=== PATIENT | female | born 1955 | race Two or more races ===

== ENCOUNTER → 2016-12-22 | Day surgery (SDC) | payer BC ==
[~2016-12-22] VITALS: Ht 151.1 cm; Wt 59.9 kg
[~2016-12-22] MED LIST: ESTRADIOL PO; FISH OIL 1,2001 EAC2 PO; OSCAL + D500 MG PO; POTASSIUM99 MG PO; ZOCOR40 MG PO
--- NOTE | 2016-12-22 08:39 | NUR ---
2 IV ATTEMPTS MADE PER [facility]
== END | disposition disaster alternative care site (69) ==
LOC: EDSTATUS 12-18 17:00 → GEND 12-18 17:00 → GPOC 12-18 17:00 → GEND 07:31
PROC: 0DB98ZX Excision of Duodenum, Via Natural or Artificial Opening Endoscopic, Diagnostic (ICD-10-PCS; principal; 2016-12-22)
PROC: 0DB68ZX Excision of Stomach, Via Natural or Artificial Opening Endoscopic, Diagnostic (ICD-10-PCS; 2016-12-22)
PROC: 0DBE8ZX Excision of Large Intestine, Via Natural or Artificial Opening Endoscopic, Diagnostic (ICD-10-PCS; 2016-12-22)
DX: K52.9 Noninfective gastroenteritis and colitis, unspecified (principal); K21.0 Gastro-esophageal reflux disease with esophagitis; K44.9 Diaphragmatic hernia without obstruction or gangrene; Z90.710 Acquired absence of both cervix and uterus; Z90.79 Acquired absence of other genital organ(s); Z79.82 Long term (current) use of aspirin; Z79.899 Other long term (current) drug therapy
CPT/HCPCS: J2001; J7030